=== PATIENT | male | born 1980 | race Two or more races ===

== ENCOUNTER 2024-12-26 09:18 | Emergency (ER) | payer MEDICAID, SELFPAY ==
[2024-12-26 09:26] VITALS: BP 147/80; PULSE 82; RESP 18; TEMP 37.1; O2SAT 97
--- NOTE | 2024-12-26 09:46 | EDNOTE_ITS ---
<Statement entered by Nadja Thomason MD - 01/10/25 06:34> As co-signing physician, I was present and available for consult prn. I concur with the plan and care as documented by the midlevel provider. ED Wound/Laceration-RME/HPI General Chief Complaint: General Adult/Misc Complain Stated Complaint: CYST ON BUTTOCKS, SEVERE PAIN Time Seen by Provider: 12/26/24 10:46 Source: patient Arrival date/time: 12/26/24 09:18 43-year-old male with no known medical history presents to the emergency room with a chief complaint of a cyst in his buttocks x 4 days Mode of arrival: ambulatory Limitations: no limitations Related Data Previous Rx's ?Medication ?Instructions ?Recorded albuterol sulfate 90 mcg/actuation 18 gm IH [id number] WA N SHORTNESS OF 03/21/13 aerosol inhaler (Ventolin HFA) BREATH #1 inh amoxicillin 875 mg-potassium 1 tab PO BID 7 days #14 t abs 12/26/24 clavulanate 125 mg tablet metronidazole 500 mg tablet 500 mg PO BID 7 days #14 t abs 12/26/24 Allergies Allergy/AdvReac Type Severity Reaction Status Date / Time No Known Allergies Allergy Verified 12/26/24 09:43 Review of Systems Review of Systems Systems Reviewed: All systems reviewed, normal except as documented Constitutional Constitutional: Reports system reviewed and no additional complaints, except as documented, Denies fatigue, Denies fever(s), Denies headache(s) and Denies weakness Eyes Eyes: Reports system reviewed and no additional complaints, except as documented, Denies blurry vision and Denies change in vision ENT Ears, Nose, Mouth, and Throat: Reports system reviewed and no additional complaints, except as documented, Denies otalgia, Denies headache(s), Denies nasal congestion, Denies throat swelling and Denies vertigo Cardiovascular Cardiovascular: Reports system reviewed and no additional complaints, except as documented, Denies chest pain, Denies dyspnea and Denies dyspnea on exertion Respiratory Respiratory: Reports system reviewed and no additional complaints, except as documented, Denies chest congestion, Denies cough, Denies dyspnea, Denies dyspnea on exertion and Denies wheezing Gastrointestinal Gastrointestinal: Reports system reviewed and no additional complaints, except as documented, Denies abdominal pain, Denies cramping, Denies nausea and Denies vomiting Genitourinary Genitourinary: Reports system reviewed and no additional complaints, except as documented, Denies dysuria and Denies hematuria Musculoskeletal Musculoskeletal: Reports system reviewed and no additional complaints, except as documented and Denies back pain Integumentary/Breasts Skin/Breast: Reports system reviewed and no additional complaints, except as documented and Reports wounds Neurologic Neurologic: Reports system reviewed and no additional complaints, except as documented, Denies confusion, Denies headache(s), Denies lack of coordination, Denies vertigo and Denies weakness Psychiatric Psychiatric: Reports system reviewed and no additional complaints, except as documented, Denies anxiety, Denies confusion, Denies depression, Denies paranoia, Denies suicidal ideation and Denies tactile hallucinations Endocrine Endocrine: Reports system reviewed and no additional complaints, except as documented and Denies fatigue Hematologic/Lymphatic Hematologic/Lymphatic: Reports system reviewed and no additional complaints, except as documented and Denies lymphadenopathy Allergic/Immunologic Allergic/Immunologic: Reports system reviewed and no additional complaints, except as documented, Denies throat swelling, Denies urticaria and Denies wheezing Past Medical History Social History SMOKING STATUS: Former smoker ED Exam General Limitations: Present no limitations General appearance: Present alert and in no apparent distress Head Head exam: Present atraumatic Eye Eye exam: Present normal appearance, PERRL and EOMI ENT ENT exam: Present normal exam, normal oropharynx and mucous membranes moist Neck Neck exam: Present normal inspection, full ROM and trachea midline Chest Chest inspection: Present normal inspection and symmetric chest wall rise Respiratory Respiratory exam: Present normal lung sounds bilaterally Cardiovascular Cardiovascular exam: Present regular rate, normal rhythm and normal heart sounds Abdominal Exam Abdominal exam: Present soft and normal bowel sounds Extremities Exam Extremities exam: Present normal inspection and full ROM Back Exam Back exam: Present normal inspection and full ROM Neurological Exam Neurological exam: Present alert, oriented X3 and CN II-XII intact Psychiatric Psychiatric exam: Present normal affect and normal mood Skin Skin exam: Present warm, dry, intact and normal color Expanded Skin Exam Type of lesion: Present abscess Distribution: Present other (Gluteal cleft) Description: Present tenderness, erythematous, swelling and discharge Body image: 2 1. Abscess in the gluteal cleft Course Quality Measures none Orders Category Date Time Status Incision and Drainage Set Up X1 Care 12/26/24 09:40 Completed Set Up Suture Tray STAT Care 12/26/24 09:40 Completed Wound Care NOW Care 12/26/24 09:40 Completed Lidocaine 1% 20 ml [Xylocaine 1% 20 ML] Med 12/26/24 09:40 Discontinued 20 ml INFL X1 ONE Vital Signs Vital signs: Vital Signs Temperature 98.8 F 12/26/24 09:26 Pulse Rate 82 12/26/24 09:26 Respiratory Rate 18 12/26/24 09:26 Blood Pressure 147/80 H 12/26/24 09:26 Pulse Oximetry (%) 97 12/26/24 09:26 Oxygen Delivery Method Room Air 12/26/24 09:26 PROCEDURES: Abscess I/D Site: other (Gluteal cleft) Side (if applicable): right Local Anesthetic: lidocaine 1% Amount of anesthesia used (mL): 6 Technique: incised with #11 blade Amount of fluid expressed (mL): 5 Irrigation: Yes Packing used?: iodoform Wound / Laceration MDM Narrative MDM Narrative:: 43-year-old male with no known medical history presents to the emergency room with a chief complaint of a cyst in his buttocks x 4 days Patient is hemodynamically stable he is afebrile not tachycardic not tachypneic Physical examination shows an abscess to the right gluteal cleft. This abscess is erythemic, tender, swollen, and full of pus. PROCEDURE: incision and drainage of abscess PROCEDURE: A timeout protocol was performed prior to initiating the procedure. The area was prepared with Betadine and draped in the usual, sterile manner. The site was anesthetized with 1% lidocaine. A linear incision along the local skin lines was made and the purulent material expressed. The abscess was explored thoroughly and sequestered pockets were opened. Bleeding was minimal. Packing: none Followup: The patient tolerated the procedure well without complications. Standard post-procedure care is explained and patient was educated to follow-up with his primary care provider in the next 24 to 48 hours or return to the emergency room for any evidence of worsening signs or symptoms. Patient data External records reviewed:: [facility] previous records Clinical information provided by:: patient Social determinants that could affect healthcare access:: none Patient has the following chronic illnesses:: No chronic illness How is presenting disease/condition affected by chronic disease/condition?: no chronic disease Evaluation data The following diagnostics were reviewed and interpreted by me:: lab results and radiology exam(s) Lab and/or radiology exams considered but not ordered:: Labs and radiology exams considered and ordered Interpretation Summary: N/A Medications / Prescriptions Medications or Prescriptions considered but not ordered:: Medication given Medication administrations:: Medication Administration History Discontinued Medications Lidocaine HCl (Lidocaine Hcl 1% 20 Ml Vial) 20 ml INFL X1 ONE Stop: 12/26/24 09:41 Last Admin: 12/26/24 10:13 Dose: 20 ml Documented By: DB Medication given Consultations Consultation(s) initiated? (list below): No Diagnosis Wound Differential Diagnosis: laceration, abscess and abrasion Most likely diagnosis given after review of the tests above:: Abscess Admission Indicated Admission indicated?: not indicated Admission Request Was there a request for admission?: No Disposition Plan Disposition Plan: Discharge Discharge Attestation Discharge Attestation: The patient and all family members were given an opportunity to ask questions and understood the discharge instructions. Discharge instructions specifically effects, indications for sooner follow up or return to the emergency department, and the expected course of current diagnosis. Patient condition: Stable Discharge Plan Plan Patient Disposition: HOME (Self Care) Discharge Disposition comment: Stable Prescriptions/Referrals Prescriptions/Med Rec: New amoxicillin-pot clavulanate 875-125 mg tablet 1 tab PO BID 7 Days Qty: 14 0RF metronidazole 500 mg tablet 500 mg PO BID 7 Days Qty: 14 0RF No Action albuterol sulfate [Ventolin HFA] 18 GM HFA aerosol inhaler 18 gm IH [id number] PRN (Reason: SHORTNESS OF BREATH) Qty: 1 0RF Referrals: No Primary/Family,Physician [Primary Care Provider] - In 1 week Problem List Clinical Impression: Abscess of gluteal cleft Patient/Caregiver Discharge Instructions Education Materials: ED Abscess Antibiotic ..., ED Abscess, Incision And Drainage Additional Instructions: Please follow-up with your primary care provider in the next 24 to 48 hours Antibiotics are sent to your pharmacy please pick them up and take them as indicated Please keep the area clean and dry. Please do frequent wound care changes and dressings after each bowel movement. For any evidence of worsening signs or symptoms return the emergency room immediately Print Language: Hebrew Stand Alone Forms: Heidy Award Info., Patient Portal Info Letter PA/GIANCARLO Supervising Physician PA/GIANCARLO Supervising Physician: Dr. THOMASON
[2024-12-26] MEDS: LIDOCAINE HCL 1% 20 ML VIAL INFL (10:13)
== END 2024-12-26 10:56 | disposition home or self-care (01) ==
PROVIDERS: Emergency Provider Emergency Medicine
DX: L02.31 Cutaneous abscess of buttock (principal)
CPT/HCPCS: 10060; 99283; J3490